=== PATIENT | male | born 1960 | race Caucasian/White ===

== ENCOUNTER 2019-12-25 12:24 | Inpatient (IN) | payer OTHER ==
[~2019-12-25] VITALS: Ht 172.7 cm; Wt 87.5 kg
[2019-12-25 13:12] LABS: BASO # 0.3 x10^3/uL (0.0-0.2); BASO % 4 % (0-3); EOS # 0.1 x10^3/uL (0.0-0.7); EOS % 1 % (0-3); HEMATOCRIT 39.9 % (39.0-53.0); LYMPH # 1.3 x10^3/uL (1.0-4.8); LYMPH % 18 % (24-48); MEAN CORPUSCULAR VOLUME 88 fL (79-100); MONO # 0.8 x10^3/uL (0.0-1.1); MONO % 10 % (0-9); NEUT # 5.2 x10^3uL (1.8-7.7); NEUT % 67 % (31-73); PLATELET COUNT 292 x10^3/uL (140-400); RED BLOOD COUNT 4.51 x10^6/uL (4.30-5.70); RED CELL DISTRIBUTION WIDTH 13.4 % (11.5-14.5); WHITE BLOOD COUNT 7.7 x10^3/uL (4.0-11.0)
--- NOTE | 2019-12-25 13:20 | RAD ---
INDICATION: Reason: chest pain - right side times 2 weeks / Spl. Instructions: / History: COMPARISON: None. FINDINGS: 2 view of chest obtained. No focal airspace consolidation. Cardiac silhouette is unremarkable. Mild degenerative spurring of the spine IMPRESSION: * No focal airspace consolidation or edema. Electronically signed by: Ji Partida MD (12/25/2019 1:17 PM) [id number]
[2019-12-25 13:23] LABS: POTASSIUM 4.4 mmol/L (3.5-5.1)
[2019-12-25] MEDS ORDERED: IV NORMAL SALINE 1,000ML 1,000 ML IV ONE ×2 (14:00→15:45)
--- NOTE | 2019-12-25 14:41 | EKG ---
[address] [address] Test Date: 2019-12-25 Test Time: 13:16:54 Pat Name: MADELAINE AL Department: Room: Gender: M Flooring Helper: : [id number] Requested By: YOVANNY LEA Order Number: [id number] Reading MD: Finn Mendez MD Measurements Intervals [place] Rate: 116 P: 27 WV: 154 QRS: -24 QRSD: 84 T: 12 QT: 314 QTc: 442 Interpretive Statements SINUS TACHYCARDIA QRS(T) CONTOUR ABNORMALITY CONSISTENT WITH INFERIOR INFARCT AGE UNDETERMINED ABNORMAL ECG Electronically Signed On 01-02-2020 9:58:27 CDT by Finn Mendez MD
[2019-12-25 15:09] LABS: MEAN CORPUSCULAR HEMOGLOBIN 32 pg (25-35)
[2019-12-25 15:11] LABS: MEAN CORPUSCULAR HGB CONC 36 g/dL (31-37)
[2019-12-25 15:23] LABS: HEMOGLOBIN 14.4 g/dL (13.0-17.5)
[2019-12-25 15:36] LABS: % EOS 1 % (0-5); % LYMPHS 27 % (24-48); % MONOS 4 % (0-10); % MYELOS 2 % (0-0); % SEGS 66 % (35-66)
[2019-12-25 15:37] LABS: PLT ESTIMATE ADEQUATE (ADEQUATE)
[2019-12-25 15:54] LABS: CLARITY,URINE CLEAR; COLOR,URINE YELLOW
[2019-12-25 15:55] LABS: BILIRUBIN,URINE NEG (NEG); GLUCOSE,URINE >=1000 mg/dL (NEG); NITRITE,URINE NEG (NEG); UROBILINOGEN,URINE 0.2 mg/dL (0.2 mg/dL)
[2019-12-25 15:57] LABS: BACTERIA,URINE FEW /HPF (0-FEW); RBC,URINE 0 /HPF (0-2); SQUAMOUS EPITHELIAL CELL,UR OCC /LPF; WBC,URINE 0 /HPF (0-4)
[2019-12-25] MEDS ORDERED: DEXTROSE 50% 25 GM / 50ML DISP.SYRIN. IV PRN (16:15)
[2019-12-25] MEDS: INSULIN REGULAR VIAL 100 UNIT in IV NORMAL SALINE 100ML 100 ML IV PRN ×2 (17:07→22:23)
--- NOTE | 2019-12-25 17:11 | PHYS DOC ---
Past History Past Medical History: No Pertinent History Past Surgical History: No Surgical History Alcohol Use: Rarely Adult General Chief Complaint Chief Complaint: HYPERTENSION HPI HPI Patient is a 59 year old male who presents with high blood pressure. Patient states that he has been having right-sided back and lower chest pain for the last couple weeks. He states at night it is excruciating. He went to urgent care to get it checked out and they found that he had very high blood pressure. He is also been feeling fatigued and generally unwell for the last 2 to 3 weeks. He denies any shortness of breath, fever, weight loss. He denies any trauma to the area. Moving around does not make it worse. Review of Systems Review of Systems General: Denies fever, chills, sweats.reports fatigue Eyes: Denies drainage, blurred vision HENT: Denies rhinorrhea, sore throat Respiratory: Denies cough, shortness of breath, wheezing Cardiac: Denies edema, palpitations, chest pain GI: Denies abdominal pain, N/V MSK: Denies neck pain reports back pain Skin: Denies rash, jaundice Neuro: Denies headache, dizziness Psychiatric: Denies SI/HI Current Medications Current Medications Current Medications Medications (Trade) Dose Ordered Sig/Armando Start Time Stop Time Status Last Admin Dose Admin Dextrose (Dextrose 50%-Water Syringe) 12.5 gm PRN Q15MIN PRN 12/25/19 16:15 Insulin Human Regular 100 unit/ Sodium Chloride 101 ml @ 0 mls/hr CONT PRN 12/25/19 16:15 Sodium Chloride 1,000 ml @ 1,000 mls/hr 1X ONCE 12/25/19 15:45 12/25/19 16:44 DC 12/25/19 15:45 1,000 MLS/HR Allergies Allergies Allergies Coded Allergies Type Severity Reaction Last Updated Verified Penicillins Allergy Unknown 12/25/19 Yes Physical Exam Physical Exam Constitutional: Well developed, well nourished, Cooperative, NAD, non-toxic appearing HEENT: Normocephalic, atraumatic, oropharynx moist, EOMI, PERRL, no drainage from eyes, normal conjunctiva Neck: Supple, normal range of motion, no stridor Cardiovascular: RRR, 2+ radial pulses bilaterally, no edema Respiratory: CTA bilaterally, no respiratory distress, no wheezing/crackles Abdomen: Soft, nontender, nondistended, no masses Skin: Warm, dry, intact Extremities: No obvious deformities Neurologic: Alert and Oriented x3, motor and sensory function grossly normal, no focal deficits Psychologic: Normal affect, normal judgment, normal mood. No SI/HI Current Patient Data Vital Signs Vital Signs Date Time Temp Pulse Resp B/P (MAP) Pulse Ox O2 Delivery O2 Flow Rate FiO2 12/25/19 16:16 96 16 159/107 (124) 97 Room Air 12/25/19 12:38 98.2 Lab Results Laboratory Tests Test 12/25/19 12:51 12/25/19 14:45 12/25/19 16:01 White Blood Count 7.7 x10^3/uL (4.0-11.0) Red Blood Count 4.51 x10^6/uL (4.30-5.70) Hemoglobin 14.4 g/dL (13.0-17.5) Hematocrit 39.9 % (39.0-53.0) Mean Corpuscular Volume 88 fL (79-100) Mean Corpuscular Hemoglobin 32 pg (25-35) Mean Corpuscular Hemoglobin Concent 36 g/dL (31-37) Red Cell Distribution Width 13.4 % (11.5-14.5) Platelet Count 292 x10^3/uL (140-400) Neutrophils (%) (Auto) 67 % (31-73) Lymphocytes (%) (Auto) 18 % (24-48) L Monocytes (%) (Auto) 10 % (0-9) H Eosinophils (%) (Auto) 1 % (0-3) Basophils (%) (Auto) 4 % (0-3) H Neutrophils # (Auto) 5.2 x10^3uL (1.8-7.7) Lymphocytes # (Auto) 1.3 x10^3/uL (1.0-4.8) Monocytes # (Auto) 0.8 x10^3/uL (0.0-1.1) Eosinophils # (Auto) 0.1 x10^3/uL (0.0-0.7) Basophils # (Auto) 0.3 x10^3/uL (0.0-0.2) H Segmented Neutrophils % 66 % (35-66) Lymphocytes % 27 % (24-48) Monocytes % 4 % (0-10) Eosinophils % 1 % (0-5) Myelocytes % 2 % (0-0) H Platelet Estimate Adequate (ADEQUATE) Sodium Level 113 mmol/L (136-145) *L Potassium Level 4.4 mmol/L (3.5-5.1) Chloride Level 79 mmol/L (98-107) L Carbon Dioxide Level 22 mmol/L (21-32) Anion Gap 12 (6-14) Blood Urea Nitrogen 11 mg/dL (8-26) Creatinine Pending Estimated GFR (Cockcroft-Gault) 68.5 BUN/Creatinine Ratio 10 (6-20) Glucose Level 708 mg/dL (70-99) *H Calcium Level 7.5 mg/dL (8.5-10.1) L Total Bilirubin 0.8 mg/dL (0.2-1.0) Aspartate Amino Transferase (AST) Pending Alanine Aminotransferase (ALT) 74 U/L (16-63) H Alkaline Phosphatase Pending Troponin I Quantitative < 0.017 ng/mL (0-0.055) Total Protein 8.4 g/dL (6.4-8.2) H Albumin 3.5 g/dL (3.4-5.0) Albumin/Globulin Ratio 0.7 (1.0-1.7) L Lipase 471 U/L (73-393) H Urine Collection Type Unknown Urine Color Yellow Urine Clarity Clear Urine pH 5.5 Urine Specific [place] 1.010 Urine Protein Neg (NEG-TRACE) Urine Glucose (UA) >=1000 mg/dL (NEG) Urine Ketones (Stick) 15 mg/dL (NEG) Urine Blood Neg (NEG) Urine Nitrite Neg (NEG) Urine Bilirubin Neg (NEG) Urine Urobilinogen Dipstick 0.2 mg/dL (0.2 mg/dL) Urine Leukocyte Esterase Neg (NEG) Urine RBC 0 /HPF (0-2) Urine WBC 0 /HPF (0-4) Urine Squamous Epithelial Cells Occ /LPF Urine Bacteria Few /HPF (0-FEW) Glucose (Fingerstick) 446 mg/dL (70-99) H EKG EKG [] Radiology/Procedures Radiology/Procedures [] Course & Med Decision Making Course & Med Decision Making Pertinent Labs and Imaging studies reviewed. (See chart for details) Patient is a 59-year-old male who presents to the emergency room complaining of right side pain. Patient does have an elevated blood pressure which is new for him. Given his backslash chest pain and new onset high blood pressure work-up was ordered including CBC, BMP, EKG, chest x-ray, troponin. Initially patient had a sodium that came back is 113. A vial of blood was drawn and laid flat to evaluate for fatty deposits. Patient had a large amount of separation suggestive of high triglycerides which can lead to pseudohyponatremia. Once full labs were resulted patient also has a glucose of 702. This is also new for him. Patient appears to have new onset diabetes and high blood pressure. He was given fluids and started on insulin drip. Patient will be admitted for further care and evaluation. Dragon Disclaimer Dragon Disclaimer This electronic medical record was generated, in whole or in part, using a voice recognition dictation system. Departure Departure: Impression: Primary Impression: Hyperglycemia Additional Impressions: Hyponatremia Hypertension Disposition: ADMITTED INPATIENT Condition: STABLE Referrals: PCP,NO (PCP) Problem Qualifiers YOVANNY LEA MD Dec 25, 2019 17:11
[2019-12-25 19:30] VITALS: BP 148/106
[2019-12-25] MEDS ORDERED: IV DEXTROSE 5 %-0.45 % NACL 1,000 ML IV SCH ×2 (19:49→20:45)
[2019-12-25] MEDS ORDERED: IV NORMAL SALINE 1,000ML 1,000 ML IV SCH ×2 (19:49)
[2019-12-25 20:00] VITALS: BP 140/92
[2019-12-25] MEDS ORDERED: POTASSIUM CHLORIDE 10MEQ 100 ML IV PRN ×5 (20:00)
[2019-12-25] MEDS ORDERED: MAGNESIUM SULFATE 2GM 50 ML IV PRN (20:00)
[2019-12-25 21:00] VITALS: BP 142/100
[2019-12-25 22:00] VITALS: BP 145/96
[2019-12-25 23:00] VITALS: BP 152/103
[2019-12-26] VITALS (12 sets, daily range): BP systolic 126–157; BP diastolic 78–101
[2019-12-26 01:34] LABS: ALBUMIN 3.6 g/dL (3.4-5.0); ALBUMIN/GLOBULIN RATIO 0.9 (1.0-1.7); TOTAL PROTEIN 7.7 g/dL (6.4-8.2)
[2019-12-26 01:36] LABS: CREATININE 1.1 mg/dL (0.7-1.3); GFR 68.5; TOTAL BILIRUBIN 0.6 mg/dL (0.2-1.0)
[2019-12-26 06:19] LABS: BASO # 0.2 x10^3/uL (0.0-0.2); BASO % 2 % (0-3); EOS # 0.2 x10^3/uL (0.0-0.7); EOS % 2 % (0-3); HEMATOCRIT 35.9 % (39.0-53.0); LYMPH # 1.9 x10^3/uL (1.0-4.8); LYMPH % 26 % (24-48); MEAN CORPUSCULAR VOLUME 89 fL (79-100); MONO # 0.6 x10^3/uL (0.0-1.1); MONO % 9 % (0-9); NEUT # 4.6 x10^3uL (1.8-7.7); NEUT % 61 % (31-73); PLATELET COUNT 198 x10^3/uL (140-400); RED BLOOD COUNT 4.06 x10^6/uL (4.30-5.70); RED CELL DISTRIBUTION WIDTH 13.9 % (11.5-14.5); WHITE BLOOD COUNT 7.5 x10^3/uL (4.0-11.0)
[2019-12-26 06:40] LABS: PHOSPHORUS 2.7 mg/dL (2.6-4.7); POTASSIUM 3.2 mmol/L (3.5-5.1)
[2019-12-26 06:52] LABS: CREATININE 0.8 mg/dL (0.7-1.3); GFR 98.9
[2019-12-26 06:55] LABS: CALCIUM 7.6 mg/dL (8.5-10.1)
[2019-12-26] MEDS ORDERED: IOHEXOL 300 MG/ML 75 ML VIAL. IV ONE (08:15)
[2019-12-26] MEDS ORDERED: POTASSIUM CHLORIDE 20 MEQ TABLET.ER. PO ONE (08:45)
[2019-12-26 08:51] LABS: HEMOGLOBIN 12.6 g/dL (13.0-17.5)
[2019-12-26 08:57] LABS: MEAN CORPUSCULAR HEMOGLOBIN 31 pg (25-35)
[2019-12-26 09:09] LABS: MEAN CORPUSCULAR HGB CONC 35 g/dL (31-37)
--- NOTE | 2019-12-26 11:21 | RAD ---
CT study of the abdomen and pelvis with contrast Clinical indications: Right flank pain. TECHNIQUE: After IV infusion of 75 cc Isovue-300, helical CT scanning of the abdomen and pelvis was performed. PQRS compliance Statement One or more of the following individualized dose reduction techniques were utilized for this study: 1. Automated exposure control 2. Adjustment of the mA and/or kV according to patient size 3. Use of iterative reconstruction technique COMPARISON: None available. FINDINGS: Diffuse fatty infiltration of the liver is seen. The spleen is enlarged measuring 14.5 cm in length. No pancreatic mass is seen. The gallbladder is normal and no extra hepatic biliary ductal dilatation is seen. No adrenal mass is seen. Both kidneys are normal without hydronephrosis or hydroureter. No renal mass is seen. Urinary bladder wall is smooth. No focal aneurysmal dilatation of the abdominal aorta is seen. The terminal ileum is unremarkable. The appendix is not visualized but there are no secondary CT findings of appendicitis. No obstructive bowel pattern is seen. No free air or free fluid or mesenteric edema is seen. No enlarged abdominal or pelvic lymphadenopathy is evident. No lung base consolidation is seen. No lytic process is evident. IMPRESSION: Mild splenomegaly. Fatty infiltration of the liver. No acute abnormality of the abdomen or pelvis is seen. Electronically signed by: Gilles Armenta MD (12/26/2019 11:18 AM) [id number]
[2019-12-26 11:22] LABS: ALBUMIN 2.6 g/dL (3.4-5.0); LIPASE 241 U/L (73-393); TOTAL BILIRUBIN 0.8 mg/dL (0.2-1.0)
[2019-12-26 12:10] LABS: ALK PHOS 71 U/L (46-116); TOTAL PROTEIN 6.1 g/dL (6.4-8.2)
[2019-12-26 13:12] LABS: ALT (SGPT) 38 U/L (16-63)
[2019-12-26 13:42] LABS: DIRECT BILIRUBIN < 0.1 mg/dL (0.0-0.2)
--- NOTE | 2019-12-26 14:07 | HP ---
ADMIT DATE: HISTORY OF PRESENT ILLNESS: The patient is a 59-year-old male patient who presented to the Emergency Room with high blood pressure. He was complaining of right sided back and lower chest pain for the last couple of weeks that has worsened recently and he stated that the pain at night is excruciating and he has not been able to sleep. He went to an urgent care to get it checked out and they found that he had very high blood pressure. He also had been feeling fatigued and generally unwell for the last 2-3 weeks. He denied any shortness of breath, fever or weight loss. He denied any trauma to the area. There is nothing aggravates or relieves the pain. He was extensively investigated in the Emergency Room and his lab work showed that his CBC was within normal range; however, his chemistry showed that his blood sugar was extremely high at 678. He has also severe dilutional hyponatremia. He was slightly dehydrated and his serum lipase was high at 471 and therefore, he was admitted and was started on insulin drip, although he has hyperosmolar nonketotic hyperglycemia. His blood pressure has generally settled down. In fact, his pain has also improved after he received 2 liters of fluid and was admitted for further evaluation and treatment. PAST MEDICAL HISTORY: Significant for hyperlipidemia, hypertension and periodontal infection or periodontitis that was treated with oral antibiotic. He has also history of spinal meningitis. PAST SURGICAL HISTORY: Unremarkable. ALLERGIES: He is allergic to PENICILLIN. MEDICATIONS: He is currently only on coet-nvm-fzwzsrs medication as needed. He is not on any prescription medication. FAMILY HISTORY: He has one brother and one sister, both younger and healthy. His mother at age of 71 because of what seemed to be renal cell carcinoma with metastasis and diabetes mellitus. His father is still alive at the age of 83 and generally healthy. SOCIAL HISTORY: He is . He has a son and a daughter. He never smoked. He drinks alcohol occasionally. Does not use any drugs. REVIEW OF SYSTEMS: As per history of present illness. PHYSICAL EXAMINATION: GENERAL: On arrival to the Emergency Room, he was definitely tachycardic, hypertensive, but there was no pallor, jaundice, cyanosis or thyromegaly. No jugular venous distention. No limb edema. VITAL SIGNS: His heart rate was 122, blood pressure was 184/132, temperature was 98.2, respiratory rate was 16 and oxygen saturation was 96%. HEAD, EYES, EARS, NOSE AND THROAT: Showed normocephalic, atraumatic. NECK: Supple. HEART: Showed normal first and second heart sounds. No gallop, rub or murmur. CHEST: Clear to auscultation. No crepitation or rhonchi. ABDOMEN: Distended, soft, nontender. NEUROLOGIC: He was awake, alert, responding appropriately. All cranial nerves intact. EXTREMITIES: He moves extremities without difficulty. LABORATORY DATA: Showed a serum sodium 113, potassium 4.4, chloride 79, bicarbonate 22, anion gap of 12, BUN of 16, creatinine 1.1, estimated GFR was 68 mL per minute. His glucose was 678. His calcium was 8.5. Total bilirubin, AST, ALT, alkaline phosphatase were normal. Total protein was 7.7, albumin was 3.6. His lipase was 471. His urinalysis showed the urine was yellow, clear with a pH of 5.5, specific gravity of 1.010. The urine was negative for protein. There was large amount of glucose, trace of ketones. The urine was negative for blood, nitrite, bilirubin. It was negative also leukocyte esterase. There are no rbc's, no wbc's, and no bacteria. His toxicology screen was negative for acetone. He has had a chest x-ray, which showed that he has no focal airspace consolidation. Cardiac silhouette is unremarkable. Mild degenerative spurring of the spine. ASSESSMENT AND PLAN: Basically, the patient was admitted with new onset of type 2 diabetes mellitus, probably hyperosmolar nonketotic hyperglycemia, dilutional hyponatremia and hypertension. We did start him on insulin drip as well as continue with IV fluid. We will obviously switch him to insulin sliding scale and eventually oral hypoglycemic agent. We will check also his fasting lipid profile as well as hemoglobin A1c. NEIDA WOLFE MD DR: RACHANA/harman JOB#: [id number] / [id number]
[2019-12-26] MEDS ORDERED: DEXTROSE 50% 25 GM / 50ML DISP.SYRIN. IV PRN (14:15)
[2019-12-26] MEDS: POTASSIUM CL 40MEQ IN 0.9%NACL 1,000 ML IV SCH ×2 (14:51→21:55)
--- NOTE | 2019-12-26 15:00 | RAD ---
EXAM: CT Thoracic Spine without IV contrast INDICATION: Reason: Severe right sided radicular pain / Spl. Instructions: / History: TECHNIQUE: Multi-detector row CT images were obtained through the thoracic spine without the use of IV contrast. Post-processing sagittal and coronal reconstructed images were obtained for interpretation. All CT scans performed at this facility utilize dose optimization techniques as appropriate to the exam, including the following: Automated exposure control and adjustment of the mA and/or KV according to patient size (this includes techniques or standardized protocols for targeted exams where dose is indication/reason for exam). COMPARISON: None FINDINGS: ALIGNMENT: Alignment is within normal limits. OSSEOUS: No evidence of fracture or bone destruction. Superior endplate Schmorl's node at T4 is present. 1 cm sclerotic lesion in the left aspect of the T2 vertebra is compatible with a large bone island. DISC SPACES: Unremarkable. FACET JOINTS: Unremarkable. SPINAL CANAL: Unremarkable. NEUROFORAMINA: Unremarkable. SOFT TISSUES: Unremarkable. IMPRESSION: No acute osseous abnormality in the thoracic spine. Schmorl's node at the superior endplate of T4 and bone island at T2 are likely incidental findings. More detailed evaluation could be pursued if clinically warranted with MRI. EXAM: CT Lumbar Spine without IV contrast INDICATION: Reason: Severe right sided radicular pain / Spl. Instructions: / History: TECHNIQUE: Multi-detector row CT images were obtained through the lumbar spine without the use of IV contrast. Post-processing sagittal and coronal reconstructed images were obtained for interpretation. All CT scans performed at this facility utilize dose optimization techniques as appropriate to the exam, including the following: Automated exposure control and adjustment of the mA and/or KV according to patient size (this includes techniques or standardized protocols for targeted exams where dose is indication/reason for exam). COMPARISON: Abdomen pelvis CT of the same day. FINDINGS: The lowest fully formed disc is referred to as the L5-S1 level. ALIGNMENT: Alignment is within normal limits. OSSEOUS: No evidence of fracture or bone destruction. DISC SPACES: Disc bulging throughout the lumbar spine is mildly present. FACET JOINTS: Bulky facet hypertrophy is present at L5-S1 right greater than left. Minimal facet sclerosis at L4-L5 bilaterally is also seen. No jumped facets or facet fractures. No obvious pars defects noted. SPINAL CANAL: No significant bony central canal stenosis. NEUROFORAMINA: Right-sided L4-L5 and L5-S1 moderate foraminal narrowing and left-sided mild to moderate foraminal narrowing are noted. SOFT TISSUES: Excreted contrast material in the distended urinary bladder from the previous CT of the abdomen and pelvis is incidentally noted. IMPRESSION: Mild multilevel lumbar spinal degenerative change with foraminal narrowing at L4-L5 and L5-S1. No fracture or aggressive appearing osseous lesions. More detailed evaluation by MRI could be pursued as clinically warranted Electronically signed by: Trinidad Julian MD (12/26/2019 2:57 PM) [id number]
[2019-12-26 15:36] LABS: TRIGLYCERIDES 3886 mg/dL (0-150); VLDLC 777 mg/dL (0-40)
[2019-12-26] MEDS: INSULIN LISPRO 300 UNITS/3 ML VIAL. SQ SCH ×2 (17:00→20:47)
[2019-12-26] MEDS: metFORMIN 500 MG TABLET PO SCH (17:16)
[2019-12-27] VITALS (7 sets, daily range): BP systolic 133–158; BP diastolic 88–110
[2019-12-27 06:07] LABS: HEMOGLOBIN A1C 15.1 % (4.8-5.6)
[2019-12-27 06:16] LABS: ALBUMIN 2.9 g/dL (3.4-5.0); ALK PHOS 79 U/L (46-116); ANION GAP 10 (6-14); BLOOD UREA NITROGEN 7 mg/dL (8-26); BUN/CREATININE RATIO 8 (6-20); CARBON DIOXIDE 23 mmol/L (21-32); CHLORIDE 94 mmol/L (98-107); GFR 86.4; SODIUM 127 mmol/L (136-145)
[2019-12-27 06:45] LABS: ALBUMIN/GLOBULIN RATIO 0.8 (1.0-1.7); CALCIUM 7.7 mg/dL (8.5-10.1); CREATININE 0.9 mg/dL (0.7-1.3); TOTAL BILIRUBIN 0.6 mg/dL (0.2-1.0); TOTAL PROTEIN 6.5 g/dL (6.4-8.2)
[2019-12-27 07:21] LABS: POTASSIUM 4.7 mmol/L (3.5-5.1)
[2019-12-27 07:22] LABS: GLUCOSE 344 mg/dL (70-99)
[2019-12-27] MEDS: metFORMIN 500 MG TABLET PO SCH ×2 (07:49→17:50)
[2019-12-27] MEDS: INSULIN LISPRO 300 UNITS/3 ML VIAL. SQ SCH ×3 (07:51→18:03)
[2019-12-27 08:06] LABS: CALCIUM 8.5 mg/dL (8.5-10.1)
[2019-12-27] MEDS ORDERED: GLIMEPIRIDE 2 MG TABLET PO SCH (09:00)
[2019-12-27] MEDS: KETOROLAC 30 MG/ML VIAL. IVP PRN ×2 (09:38→18:04)
[2019-12-27] MEDS: GLIMEPIRIDE 2 MG TABLET PO SCH ×2 (12:55→17:50)
--- NOTE | 2019-12-27 13:48 | PN ---
DATE: 12/27/2019 SUBJECTIVE: The patient is sitting comfortably in his chair, in no apparent distress. His back pain has responded very well to the Toradol injection. His blood sugar is slightly better, but not optimally yet controlled. We did start him on scheduled NovoLog insulin as per sliding scale and added metformin and Amaryl. Despite all the IV fluids, the patient's sodium continues to be on the lower side indicating that probably has SIADH and therefore we decided to put him on a fluid restriction about 1200 mL, also we checked his morning cortisol and TSH. PHYSICAL EXAMINATION: GENERAL: When I saw him this morning, he looked well and was clearly in no apparent respiratory distress. No pallor, jaundice, cyanosis or thyromegaly. No jugular venous distention. No limb edema. VITAL SIGNS: His heart rate was 94, blood pressure 152/92, temperature was 97.8, respiratory rate was 16, and oxygen saturation was 93%. HEAD, EYES, EARS, NOSE AND THROAT: Normocephalic, atraumatic. NECK: Supple. CARDIAC: Normal first and second heart sounds. No gallop, rub or murmur. CHEST: Clear to auscultation. No crepitation or rhonchi. ABDOMEN: Distended, soft, nontender. NEUROLOGIC: He is grossly intact. The patient is up and about ambulating without assistance or assistive devices. His intake over the last 24 hours was 2500, no output was recorded. LABORATORY DATA: His lab work this morning showed a white cell count 7500, hemoglobin 13, hematocrit 36, MCV was 89 and platelet count of 198,000. His serum sodium was 127, potassium 4.7, chloride 94, bicarbonate 23, anion gap of 10, BUN 7, creatinine 0.9, estimated GFR at 60 mL per minute. His glucose was 344, calcium was 7.7. Total bilirubin, AST and ALT are normal. Total protein 6.5, albumin 2.9. ASSESSMENT: 1. New onset type 2 diabetes mellitus with hyperosmolar nonketotic hyperglycemia. 2. Dilutional hyponatremia. 3. Hypertension. 4. Severe back pain due to degenerative disk disease. PLAN: Persistent hyponatremia despite improvement in his blood sugar control, indicating that there is underlying mechanism that causing this persistent hyponatremia, and therefore, I will obviously continue to monitor his blood sugar and he is now on scheduled 10 units of NovoLog before meals and Glucophage 500 mg twice a day as well as Amaryl 4 mg twice a day. We will arrange for him to be followed by Dr. Giovanni Traylor as he will need adjustment of his oral hypoglycemic agent and/or insulin. He will require MRI of the thoracic, lumbar spine and further evaluation by neurosurgical team if deemed necessary. NEIDA WOLFE MD DR: RACHANA/harman JOB#: [id number] / [id number]
[2019-12-27 20:45] LABS: TRIGLYCERIDES 3834 mg/dL (0-150); VLDLC 766 mg/dL (0-40)
[2019-12-27] MEDS ORDERED: INSULIN GLARGINE SYRINGE. SQ SCH (20:45)
[2019-12-27] MEDS ORDERED: INSULIN GLARGINE SYRINGE. SQ ONE (21:15)
[2019-12-28] MEDS: KETOROLAC 30 MG/ML VIAL. IVP PRN (00:22)
[2019-12-28 05:54] VITALS: BP 166/109
[2019-12-28 06:26] LABS: CALCIUM 6.8 mg/dL (8.5-10.1); GFR 98.9; POTASSIUM 3.8 mmol/L (3.5-5.1)
[2019-12-28 07:22] LABS: CREATININE 0.8 mg/dL (0.7-1.3)
[2019-12-28] MEDS: GLIMEPIRIDE 2 MG TABLET PO SCH (08:06)
[2019-12-28] MEDS: metFORMIN 500 MG TABLET PO SCH (08:06)
[2019-12-28] MEDS: INSULIN LISPRO 300 UNITS/3 ML VIAL. SQ SCH ×2 (08:15→12:10)
[2019-12-28 11:48] VITALS: BP 147/93
[2019-12-28] MEDS ORDERED: GLIM4TAB PO (13:56)
[2019-12-28] MEDS ORDERED: METF-658 PO (13:56)
[2019-12-28] MEDS ORDERED: INSU100C4 SQ (13:57)
[2019-12-28] MEDS ORDERED: HYDR-2155 PO (13:57)
[2019-12-28] MEDS ORDERED: INSU100I13 SQ (13:57)
--- NOTE | 2019-12-28 14:27 | DS ---
DATE OF DISCHARGE: HOSPITAL COURSE: The patient is a 59-year-old male patient who was admitted originally with a complaint of severe back pain. During the course of investigation, he was found to have severe hyperglycemia with blood sugar about 700 mg/dL with also severe dilutional hyponatremia and acute kidney injury. He was initially started on insulin drip and his blood sugar came down. We switched him to oral hypoglycemic including Amaryl and Glucophage and also added NovoLog and Lantus. His kidney function has steadily improved. His creatinine came down from 1.1 down to 0.8. His potassium has normalized. However, his sodium continued to be borderline low despite correction of hyperglycemia. His blood pressure actually has normalized once we treated his blood sugar. He continued to have back pain, however, thoracic and lumbar spine CT scan showed some degenerative disk disease without any obvious fracture or dislocation or aggressive appearing osseous lesion. His hemoglobin A1c was extremely high at 15.1%. As the patient remained hemodynamically stable, a decision was made to discharge him home to follow with his primary care physician, Dr. Giovanni Traylor to continue adjusting his insulin and he probably needs to have an order for MRI of his thoracic and lumbar spine. I did check his morning cortisol and TSH and both were normal excluding hypothyroidism and [place]'s disease as a cause of hyponatremia,. He is not on any medication that causes a syndrome of inappropriate ADH. PHYSICAL EXAMINATION: GENERAL: When I saw him this afternoon, he was sitting on his chair comfortably in no apparent respiratory distress. No pallor, jaundice, cyanosis or thyromegaly. No jugular venous distention. No limb edema. VITAL SIGNS: His heart rate was 86, blood pressure was 147/93, temperature was 97.1, respiratory rate was 20, and oxygen saturation was 98%. HEAD, EYES, EARS, NOSE AND THROAT: Showed normocephalic, atraumatic. NECK: Supple. HEART: Showed normal first and second heart sounds. No gallop, rub or murmur. CHEST: Clear to auscultation. No crepitation or rhonchi. ABDOMEN: Distended, soft, nontender. No guarding or rigidity. No organomegaly. Hernial orifice intact. Bowel sounds normal. NEUROLOGIC: He was awake, alert, responding appropriately. He moves all extremities without difficulty, ambulates without assistance or assistive devices. LABORATORY DATA: Lab work showed a white cell count 7500, hemoglobin 12.6, hematocrit 35, MCV 89, platelet count of 198,000. His chemistry showed serum sodium of 126, potassium 3.8, chloride 94, bicarbonate 22, anion gap of 10, BUN 10, creatinine 0.8, estimated GFR was 99 mL per minute. His glucose was 294 and calcium was 6.8. His urinalysis was unremarkable. Toxic screen was negative. His chest x-ray was unremarkable and CT scan of the abdomen and pelvis showed no abnormality other than mild splenomegaly, has had fatty infiltration of the liver. No acute abnormality of the abdomen and pelvis otherwise seen. DISCHARGE MEDICATIONS: He was discharged home to continue on metformin extended release 500 mg twice a day, glimepiride for Amaryl 4 mg twice a day, hydrocodone/APAP 5/325 one tablet every 6 hours. He is also on NovoLog insulin 15 units subcutaneously before meals and Lantus insulin 20 units at bedtime. FINAL DISCHARGE DIAGNOSES: 1. Poorly controlled new onset type 2 diabetes with hemoglobin A1c of 15.1%. 2. Borderline hypertension. 3. Hyponatremia, although hyperglycemia account for part of it. 4. Chronic back pain due to degenerative disk disease. 5. Probably nonalcoholic steatohepatitis. He has also had splenomegaly with no obvious cause. The patient was advised to follow with his primary care physician to adjust his insulin and also to arrange for an MRI of his thoracic and lumbar spine to elucidate the cause of his chronic pain. He might also require referral to an marketing rotation associate to elucidate the cause of his persistent hyponatremia. NEIDA WOLFE MD DR: RACHANA/harman JOB#: [id number] / [id number]
== END 2019-12-28 15:04 | disposition home or self-care (01) | DRG 682 ==
LOC: ER 12:24 → ICU 16:07 → 1 SOUTH 12-27 05:50
PROVIDERS: ADMIT Internal Medicine; ATTEND Internal Medicine
DX: N17.9 Acute kidney failure, unspecified (principal); E11.00 Type 2 diabetes mellitus with hyperosmolarity without nonketotic hyperglycemic-hyperosmolar coma (NKHHC); E22.2 Syndrome of inappropriate secretion of antidiuretic hormone; R07.89 Other chest pain; E78.5 Hyperlipidemia, unspecified; E86.0 Dehydration; G89.29 Other chronic pain; I10 Essential (primary) hypertension; K75.81 Nonalcoholic steatohepatitis (NASH); M51.36 Other intervertebral disc degeneration, lumbar region; Z80.51 Family history of malignant neoplasm of kidney; Z83.3 Family history of diabetes mellitus; Z86.61 Personal history of infections of the central nervous system; Z88.0 Allergy status to penicillin
CPT/HCPCS: 36415; 71046; 72128; 72131; 74177; 80048; 80053; 80061; 80076; 81001; 82010; 82533; 82947; 83036; 83690; 84100; 84443; 84478; 84484; 85007; 85025; 93005; 96360; 96361; J1815; J1885; J3010; Q9967; 99285-25; J7030